=== PATIENT | male | born 1955 | race Caucasian/White ===

== ENCOUNTER 2018-05-06 06:59 | Day surgery (SDC) | payer MEDICARE, OTHER ==
[~2018-05-06 06:59] MED LIST: ACETAMINOPHEN 1,000 MG/100 ML BTL IV ONE
[2018-05-06] MEDS ORDERED: LIDOCAINE 1% MDV (10MG/ML) 20ML VIAL SQ ONE (07:00)
[2018-05-06] MEDS ORDERED: FENTANYL PF 100MCG/2ML VIAL IV ONE (07:00)
[2018-05-06] MEDS ORDERED: DEXAMETHASONE PRESERVATIVE FREE 10MG/ML VIAL IV ONE (07:00)
[2018-05-06] MEDS ORDERED: LIDOCAINE 1% W/EPI 1:200,000 MPF 30ML SQ ONE (07:00)
[2018-05-06] MEDS ORDERED: MIDAZOLAM HCL 2MG/2ML VIAL IV ONE (07:00)
[2018-05-06] MEDS ORDERED: PROPOFOL 10 MG/ML VIAL IV ONE (07:00)
[2018-05-06] MEDS ORDERED: BUPIVACAINE 0.5% W/EPI MPF 30 ML VIAL IVP ONE (07:00)
--- NOTE | 2018-05-06 16:58 | Operative Note - [place] ---
DATE OF SURGERY: 05/06/18 PREOPERATIVE DIAGNOSIS: CERVICAL SPONDYLOSIS WITHOUT MYELOPATHY, ICD-10 CODE = M47.812. OPERATION: RADIOFREQUENCY RHIZOTOMY BILATERAL CERVICAL FACETS 4-5, 5-6 , AND 6-7. SURGEON: SHAVON VELA D.O. ANESTHESIA: LOCAL SEDATION. ANESTHESIA PROVIDER: ZARINA ROCHA CRNA. INDICATION: This patient presents with primary neck pain. Examination shows diffuse tenderness in the cervical spine. Range of motion does cause pain to the neck with extension. Diagnostic imaging shows multiple levels of diffuse spondylosis. Facet series 75-plus percent pain control. Due to the failure of therapies and the success of the facet series, he presents for rhizotomy for more long-term relief. PROCEDURE: Intravenous line, vital sign monitoring, IV sedation, prepped, draped, sterile technique. Cervical facet spine at 4-5, 5-6, and 6-7 marked bilaterally, infiltrated, and a 22-gauge rhizotomy cannula positioned. Stimulation trials conducted. Rhizotomy burn performed. Local with anti- inflammatory into the sites. Topical antibiotics. Sterile dressing applied. We will monitor and evaluate. JOB NUMBER: [id number] MTDD
== END 2018-05-06 08:47 | disposition home or self-care (01) ==
LOC: SUR 06:59
PROVIDERS: ATTEND Pain Medicine Interventional Pain Medicine
DX: M47.812 Spondylosis without myelopathy or radiculopathy, cervical region (principal); E78.00 Pure hypercholesterolemia, unspecified